=== PATIENT | female | born 1945 | race Caucasian/White ===

== ENCOUNTER → 2020-01-02 | Day surgery (SDC) | payer OTHER | END | disposition home or self-care (01) | LOC: OR 10:42 | DX: C44.1192 Basal cell carcinoma of skin of left lower eyelid, including canthus (principal); E11.9 Type 2 diabetes mellitus without complications; I25.2 Old myocardial infarction; Z98.890 Other specified postprocedural states; Z11.59 Encounter for screening for other viral diseases; Z87.891 Personal history of nicotine dependence; Z90.710 Acquired absence of both cervix and uterus; Z79.4 Long term (current) use of insulin; Z79.899 Other long term (current) drug therapy; Z98.41 Cataract extraction status, right eye; Z98.42 Cataract extraction status, left eye ==